=== PATIENT | male | born 1960 | race Caucasian/White ===

== ENCOUNTER 2021-01-26 22:21 | Emergency (ER) | payer OTHER ==
[~2021-01-26] VITALS: Ht 193 cm; Wt 100.2 kg
[2021-01-26] MEDS ORDERED: CASIRIVIMAB/IMDEVIMAB 10 ML in SODIUM CHLORIDE 0.9% 100 ML IV ONE (22:30)
[2021-01-26] MEDS ORDERED: SODIUM CHLORIDE 0.9% 100 ML ONE (22:42)
== END 2021-01-27 00:30 | disposition home or self-care (01) ==
LOC: ER 22:32
DX: U07.1 COVID-19 (principal); R05.9 Cough, unspecified; R06.02 Shortness of breath; E11.9 Type 2 diabetes mellitus without complications
CPT/HCPCS: 99283; J7050